=== PATIENT | female | born 1990 | race Two or more races ===

== ENCOUNTER 2017-03-14 14:00 | Emergency (ER) | payer OTHER ==
[~2017-03-14] VITALS: Ht 167.6 cm; Wt 103.5 kg
[~2017-03-14 14:00] MED LIST: NOHOMEMEDS
[2017-03-14 15:02] LABS: HEMATOCRIT 39.2 % (36.0-46.0); MCH 29.2 PG (29.0-34.0); MCHC 32.4 G/DL (30.0-36.0); MCV 90.1 FL (83-99); MEAN PLAT.VOLUME 10.6 uM^3 (9.5-12.4); PLATELET COUNT 294 K/uL (156-360); RBC DIS.WIDTH-CV 12.4 % (11.8-14.6); RBC DIS.WIDTH-SD 41.7 % (39-53); RED BLOOD COUNT 4.35 M/uL (3.80-5.20); WHITE BLOOD COUNT 8.6 K/uL (4.1-10.2)
[2017-03-14 15:10] LABS: D-DIMER ELISA < 150.00 ng/mLDDU (<230)
[2017-03-14 15:11] LABS: CHLORIDE 107 mEq/L (99-109); POTASSIUM 4.6 mEq/L (3.7-5.4); SODIUM 139 mEq/L (136-147)
[2017-03-14 15:14] LABS: GLUCOSE 119 mg/dL (70-99)
[2017-03-14 15:15] LABS: ANION GAP 7 MEQ/L (2-14)
[2017-03-14 15:16] LABS: TOTAL BILIRUBIN 0.2 mg/dL (0.0-1.0)
[2017-03-14 15:17] LABS: ALKALINE PHOSPHATASE 66 IU/L (3-129); GFR ESTIMATE (CALCULATED) > 59 mL/min/
[2017-03-14 15:18] LABS: UREA NITROGEN (BUN) 9 mg/dL (9-23)
[2017-03-14 15:21] LABS: LIPASE 10 U/L (1.0-51.0)
[2017-03-14 15:23] LABS: TROP-I INTERPRETATION NEGATIVE; TROPONIN-I < 0.01 ng/mL (0.0-0.30)
[2017-03-14 15:26] LABS: QUANTITATIVE HCG < 4.0 MIU/ML
[2017-03-14 17:55] LABS: TROP-I INTERPRETATION NEGATIVE; TROPONIN-I < 0.01 ng/mL (0.0-0.30)
[2017-03-14 18:13] VITALS: BP 112/51
== END 2017-03-14 18:15 | disposition home or self-care (01) ==
LOC: EME 14:00
PROVIDERS: Nurse Practitioner Family
DX: R07.9 Chest pain, unspecified (principal); Z87.891 Personal history of nicotine dependence
CPT/HCPCS: 71020; 80053; 83690; 84484; 84702; 85027; 85379; 93005; 99281; 99285